=== PATIENT | female | born 1960 | race Two or more races ===

== ENCOUNTER 2023-11-08 08:31 | Outpatient (CLI) | payer OTHER | END 2023-11-08 08:34 | disposition home or self-care (01) | LOC: SONOGRAMA 08:31 | PROVIDERS: ATTEND Pathology Anatomic Pathology & Clinical Pathology | DX: D34 Benign neoplasm of thyroid gland (principal); E07.89 Other specified disorders of thyroid; E04.1 Nontoxic single thyroid nodule ==

== ENCOUNTER 2024-01-23 07:45 | Inpatient (IN) | payer OTHER ==
[~2024-01-23] VITALS: Ht 157.5 cm; Wt 64.9 kg
[2024-01-23] MEDS ORDERED: CHILDREN'S ASPI81 MG PO (09:22)
[2024-01-23] MEDS ORDERED: COZAAR100 MG PO (09:23)
[2024-01-23] MEDS ORDERED: ZANAFLEX2 M1 PO (09:23)
[2024-01-23] MEDS ORDERED: JARDIANCE10 MG PO (09:23)
[2024-01-23] MEDS ORDERED: SYNTHROID50 MCG PO (09:23)
[2024-01-23] MEDS ORDERED: CRESTOR40 MG PO (09:24)
[2024-01-23] MEDS ORDERED: PROTONIX40 MG PO (09:24)
[2024-01-23] MEDS ORDERED: TOPROL XL200 MG PO (09:24)
[2024-01-23] MEDS ORDERED: TOUJEO SOL300 UNIT/1 (09:25)
[2024-01-23] MEDS ORDERED: OSENI 25-15 MG1 EACH PO (09:26)
[2024-01-23 09:32] VITALS: BP 160/70
[2024-01-23 09:41] LABS: INR 0.95; PARTIAL THROMBOPLASTIN TIME 25.5 SECONDS (22.0-34.0); PROTHROMBIN TIME 10.4 SECONDS (9.0-11.5)
[2024-01-25] MEDS ORDERED: OZEMPIC1 MG/0.71 (08:04)
[2024-01-25] MEDS ORDERED: JARDIANCE25 MG (08:04)
[2024-01-25] MEDS ORDERED: MAXIMUM D3325 MCG (08:04)
[2024-01-25] MEDS ORDERED: ATORVASTATIN CA40 MG (08:04)
[2024-01-25] MEDS ORDERED: CEFAZOLIN SODIUM 1,000 MG VIAL IV ONE ×2 (09:45)
[2024-01-25] MEDS ORDERED: CYCLOBENZAPRINE HCL 5 MG TABLET PO SCH (10:25)
[2024-01-25] MEDS ORDERED: ENALAPRILAT DIHYDRATE 1.25 MG/ML VIAL IV PRN (10:30)
[2024-01-25] MEDS ORDERED: DEXTROSE 50 % IN WATER 0.5 G/ML DISP.SYRIN IV PRN (10:30)
[2024-01-25] MEDS ORDERED: ONDANSETRON HCL 2 MG/ML VIAL IV PRN (10:30)
[2024-01-25] MEDS ORDERED: INSULIN LISPRO 1,000 UNIT/10 ML UNITS SUBCUTANEO PRN (10:30)
[2024-01-25] MEDS ORDERED: ENALAPRILAT DIHYDRATE 2.5 MG/2 ML VIAL IV ONE (11:05)
[2024-01-25] MEDS ORDERED: METOPROLOL SUCCINATE 50 MG TAB.SR.24H PO SCH (12:00)
[2024-01-25] MEDS ORDERED: ACETAMINOPHEN 500 MG GEL..CAP PO SCH (13:00)
[2024-01-25] MEDS ORDERED: TRAMADOL HCL 50 MG TABLET PO SCH (13:00)
[2024-01-25] MEDS ORDERED: MORPHINE SULFATE 4 MG/ML VIAL IV ONE (13:10)
[2024-01-25 13:34] VITALS: BP 151/81; O2SAT 100
[2024-01-25 17:00] VITALS: BP 123/75; O2SAT 19
[2024-01-25] MEDS ORDERED: ATORVASTATIN CALCIUM 40 MG TABLET PO SCH (17:00)
[2024-01-25] MEDS ORDERED: PANTOPRAZOLE SODIUM 40 MG/VIAL VIAL IV PUSH SCH (21:00)
[2024-01-26 00:38] VITALS: BP 110/64; O2SAT 98
[2024-01-26] MEDS ORDERED: LEVOTHYROXINE SODIUM 50 MCG TABLET PO SCH (06:00)
[2024-01-26 08:00] VITALS: BP 118/58; O2SAT 100
[2024-01-26] MEDS ORDERED: LOSARTAN POTASSIUM 100 MG TABLET PO SCH (09:00)
== END 2024-01-26 14:00 | disposition home or self-care (01) | DRG 627 ==
LOC: SURH 01-25 05:00 → O/R 01-25 05:00 → SURH 01-25 07:00
PROVIDERS: ADMIT Surgery; ATTEND Surgery
PROC: 0GBL0ZZ Excision of Right Superior Parathyroid Gland, Open Approach (ICD-10-PCS; 2024-01-25)
PROC: 0GBM0ZZ Excision of Left Superior Parathyroid Gland, Open Approach (ICD-10-PCS; 2024-01-25)
PROC: 0GBN0ZZ Excision of Right Inferior Parathyroid Gland, Open Approach (ICD-10-PCS; principal; 2024-01-25 07:00)
DX: D35.1 Benign neoplasm of parathyroid gland (principal); Z20.822 Contact with and (suspected) exposure to COVID-19